=== PATIENT | male | born 1950 | race Caucasian/White ===

== ENCOUNTER 2017-01-12 04:38 | Emergency (ER) | payer OTHER ==
[~2017-01-12] VITALS: Ht 182.9 cm; Wt 72.7 kg
[2017-01-12 04:50] VITALS: Ht 182.9 cm; Wt 72.7 kg
[2017-01-12] MEDS ORDERED: SOD CHLORIDE 0.9% 1,000 ML IV STA (04:54)
[2017-01-12 05:32] LABS: ADD SCAN DIFF NO
[2017-01-12 05:41] LABS: BASOPHILS % 0.5 % (0.0-2.0); EOSINOPHILS # 0.2 10^3/ul (0.0-0.5); EOSINOPHILS % 1.8 % (0.0-7.0); LYMPHOCYTES # 1.6 10^3/ul (0.8-2.9); LYMPHOCYTES % 18.8 % (15.0-51.0); MEAN CORPUSCULAR HEMOGLOBIN 27.9 pg (29.0-33.0); MEAN CORPUSCULAR HGB CONC 34.1 g/dl (32.0-37.0); MEAN CORPUSCULAR VOLUME 81.9 fl (82.0-101.0); MEAN PLATELET VOLUME 11.7 fl (7.4-10.4); MONOCYTE # 0.6 10^3/ul (0.3-0.9); MONOCYTES % 6.5 % (0.0-11.0); NEUTROPHIL # 6.3 10^3/ul (1.6-7.5); NEUTROPHILS % 72.1 % (39.0-77.0); PLATELET COUNT 194 10^3/UL (140-415); RED BLOOD COUNT 5.37 10^6/ul (4.70-6.10); RED CELL DISTRIBUTION WIDTH 12.8 % (11.5-14.5); WHITE BLOOD COUNT 8.7 10^3/ul (4.8-10.8)
[2017-01-12] MEDS ORDERED: MULTI PO (05:49)
[2017-01-12 05:58] LABS: INR 1.06; PROTIME 13.8 Sec (12.2-14.2); PT RATIO 1.1
[2017-01-12 05:59] LABS: PARTIAL THROMBOPLASTIN TIME 24.8 Sec (25.0-35.0)
[2017-01-12] MEDS ORDERED: SOD CHLORIDE 0.9% 1,000 ML IV ONE (06:00)
[2017-01-12 06:02] LABS: CALCIUM 10.2 mg/dl (8.4-10.2); CREATININE 1.1 mg/dl (0.61-1.24)
[2017-01-12] MEDS ORDERED: ALPR1TAB7 PO (06:05)
[2017-01-12] MEDS ORDERED: CITA20TA6 PO (06:05)
[2017-01-12] MEDS ORDERED: ALPR2TAB PO (06:05)
[2017-01-12] MEDS ORDERED: DULO20CA17 PO (06:05)
[2017-01-12] MEDS ORDERED: QUET25TA26 PO (06:05)
[2017-01-12] MEDS ORDERED: GABA100C14 PO (06:05)
[2017-01-12] MEDS ORDERED: NOVO3I SC (06:09)
[2017-01-12] MEDS ORDERED: LANT3I SC (06:09)
[2017-01-12 06:11] LABS: POTASSIUM 2.7 mmol/L (3.5-5.1)
[2017-01-12 06:14] LABS: TROPONIN-I 0.033 ng/ml (0.00-0.12)
[2017-01-12] MEDS ORDERED: POTASSIUM CHLORIDE (SR) 20 MEQ TAB PO ONE (06:16)
--- NOTE | 2017-01-12 06:18 | RADRPT ---
PROCEDURE: CT Brain without. CLINICAL INDICATION: Syncope TECHNIQUE: A CT of the brain was performed utilizing axial sections from the skull base through th e vertex without contrast. The scan was reviewed in soft tissue brain and high frequency resolution bone algorithm windows. Images were reviewed on a high-resolution PACS workstation. One or more of the following dose reduction techniques were used: Automated exposure control, Adjust ment of the mA and/or kV according to patient size, and/or Use of iterative reconstruction technique . The exam CTDI = 42.69 mGy, and the DLP = 810.25 mGy-cm. COMPARISON: None available FINDINGS: There are postsurgical changes from right frontal craniotomy. There is moderate enlargement of the lateral ventricles and mild prominence of the cerebral sulci. There is no intracranial hemorrhage, m idline shift, or mass effect. No abnormal extra-axial fluid collections are identified. The skinner- white differentiation is well preserved. The basal cisterns are patent. The posterior fossa is unr emarkable. Vascular calcifications are noted within the intracranial portions of the vertebral and i nternal carotid arteries. The visualized portions of the orbits are unremarkable. The paranasal sinuses and mastoid air cells are clear. No calvarial fracture or abnormality are identified. The soft tissues are unremarkable . IMPRESSION: 1. Moderate enlargement of the ventricles, greater than expected given degree of cerebral atrophy. Consider MRI to exclude hydrocephalus. 2. Postsurgical changes from right frontal craniotomy. 3. Arterial atherosclerosis. RPTAT: HH .Annabel Bocanegra MD, Date Time Electronically viewed and signed by .Annabel Bocanegra MD, on 01/12/2017 06:17 .Ivan/
[2017-01-12] MEDS ORDERED: POTASSIUM CHLORIDE 250 ML IVPB ONE (06:30)
[2017-01-12] MEDS ORDERED: MAGNESIUM SULFATE 1 GM/D5W 100 ML IVPB ONE (06:30)
--- NOTE | 2017-01-12 06:44 | RADRPT ---
PROCEDURE: CHEST - 1 VIEW CLINICAL INDICATION: 66-year-old male with syncope. TECHNIQUE: A single frontal AP portable view of the chest was performed. The images were reviewed on a PACS workstation. COMPARISON: None. FINDINGS: The cardiomediastinal silhouette has a normal appearance. There is no evidence for an infiltrate. There is no evidence for congestive heart failure. There is no evidence for pneumothorax. The osseou s structures are intact. IMPRESSION: No evidence for active cardiopulmonary disease. .Royce Vo MD, MD Date Time Electronically viewed and signed by .Royce oV MD, MD on 01/12/2017 06:44 .M/
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
[2017-01-12 08:27] VITALS: BP 157/84; PULSE 74; RESP 19
== END 2017-01-12 08:55 | disposition short-term general hospital (02) ==
LOC: E/R 04:38
DX: G91.9 Hydrocephalus, unspecified (principal); E87.6 Hypokalemia; E11.9 Type 2 diabetes mellitus without complications; F17.210 Nicotine dependence, cigarettes, uncomplicated; R55 Syncope and collapse; W01.10XA Fall on same level from slipping, tripping and stumbling with subsequent striking against unspecified object, initial encounter; Y92.9 Unspecified place or not applicable; Z79.4 Long term (current) use of insulin
CPT/HCPCS: 70450; 71010; 80048; 82962; 84484; 85025; 85610; 85730; 93005; J3475; J3480; J7030; 36415; 96361; 96365; 96375